=== PATIENT | male | born 1995 | race Caucasian/White ===

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

== ENCOUNTER 2017-10-12 10:21 | Outpatient (CLI) | payer OTHER, MEDICAID ==
[2017-10-12 13:27] LABS: THYROID STIMULATING HORMONE 6.42 uIU/mL (0.34-5.60)
[2017-10-12 14:09] LABS: FREE T4 (FREE THYROXINE) 0.77 ng/dL (0.58-1.64)
== END 2017-10-12 10:22 | disposition home or self-care (01) ==
LOC: LAB.N 10:21
PROVIDERS: ATTEND Nurse Practitioner Gerontology
DX: E03.9 Hypothyroidism, unspecified (principal)
CPT/HCPCS: 36415; 84439; 84443